=== PATIENT | male | born 1985 | race Caucasian/White ===

== ENCOUNTER 2019-11-02 21:36 | Emergency (ER) | payer OTHER, BC ==
--- NOTE | 2019-11-02 22:51 | RADIOLOGY REPORT (SQ) ---
EXAM DESCRIPTION: XR HAND 1-2 VIEWS COMPLETED DATE/TME: 11/02/2019 00:00 CLINICAL HISTORY: bone tenderness COMPARISON: None FINDINGS: Two x-ray views of the right hand were submitted. There is no acute fracture or dislocation. Bone mineralization is within normal limits. There is no radiopaque foreign body material. IMPRESSION: No acute fracture or dislocation.
--- NOTE | 2019-11-02 22:52 | RADIOLOGY REPORT (SQ) ---
EXAM DESCRIPTION: XR HAND 1-2 VIEWS COMPLETED DATE/TME: 11/02/2019 00:00 CLINICAL HISTORY: bone tenderness COMPARISON: None FINDINGS: Two x-ray views of the left hand were submitted. There is no acute fracture or dislocation. Bone mineralization is within normal limits. There is no radiopaque foreign body material. IMPRESSION: No acute fracture or dislocation.
--- NOTE | 2019-11-02 22:53 | RADIOLOGY REPORT (SQ) ---
EXAM DESCRIPTION: XR ANKLE 3 OR MORE VIEWS COMPLETED DATE/TME: 11/02/2019 00:00 CLINICAL HISTORY: bone tenderness COMPARISON: None FINDINGS: Three x-ray views of the right ankle were submitted. There is no acute fracture or dislocation. Bone mineralization is within normal limits. There is no radiopaque foreign body material. IMPRESSION: No acute fracture or dislocation.
[2019-11-02] MEDS ORDERED: KETOROLAC TROMETHAMINE INJ/PF 30 MG/1 ML SDV IV ONE (23:21)
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
[2019-11-02] MEDS ORDERED: DEXAMETHASONE SOD PHOS INJ 10 MG/1 ML VIAL IV ONE (23:22)
[2019-11-02] MEDS ORDERED: DIPH/PERTUSS(ACELL)/TETANUS VAC/PF 0.5 ML SYR (>=10YO) IM ONE (23:22)
[2019-11-02 23:58] VITALS: BP 134/78
[2019-11-04 05:37] LABS: HEPATITS B SURFACE ANTIGEN Negative (Negative)
[2019-11-04 08:35] LABS: HEPATITIS C VIRUS ANTIBODY <0.1 s/co ratio (0.0-0.9)
== END 2019-11-03 | disposition home or self-care (01) ==
LOC: ER 21:36
DX: S90.512A Abrasion, left ankle, initial encounter (principal); S90.511A Abrasion, right ankle, initial encounter; M25.541 Pain in joints of right hand; M25.542 Pain in joints of left hand; M79.89 Other specified soft tissue disorders; M79.10 Myalgia, unspecified site; Y04.0XXA Assault by unarmed brawl or fight, initial encounter; I10 Essential (primary) hypertension; F17.210 Nicotine dependence, cigarettes, uncomplicated
CPT/HCPCS: 99285; 90471; 96374; 96375; 36415; 86592; 86701; 80074; 73610; 73120 ×2; 90715; J1885; J1100